=== PATIENT | female | born 1940 | race Caucasian/White ===

== ENCOUNTER 2024-12-26 21:46 | Inpatient (IN) | payer MEDICARE ==
[~2024-12-26] VITALS: Ht 162.6 cm; Wt 81.6 kg
[2024-12-26 22:37] LABS: ALBUMIN 3.4 g/dL (3.5-5.0); ALBUMIN/GLOBULIN RATIO 1.3 (0.8-2.0); ANION GAP 15.2 mmol/L (8-16); BILIRUBIN,TOTAL 0.4 mg/dL (0.2-1.2); CALCIUM 8.4 mg/dL (8.4-10.2); CREATININE, SERUM 1.28 mg/dL (0.57-1.11); POTASSIUM 4.2 mmol/L (3.5-5.1)
[2024-12-26 22:38] LABS: BASOPHILS # (AUTO) 0.1 (0.0-0.1); BASOPHILS % 0.7 % (0.0-1.0); EOSINOPHILS # (AUTO) 0.1 (0.0-0.4); EOSINOPHILS % 1.6 % (0.0-6.0); HEMATOCRIT 35.7 % (34.2-44.1); LYMPHOCYTES # (AUTO) 2.1 (1.0-3.2); LYMPHOCYTES % 25.4 % (18.0-39.1); MEAN CORPUSCULAR HEMOGLOBIN 31.8 pg (28-32); MEAN CORPUSCULAR HGB CONC 30.8 g/dL (31-35); MEAN CORPUSCULAR VOLUME 103.2 fL (81-99); MONOCYTES # (AUTO) 0.7 (0.2-0.8); MONOCYTES % 8.9 % (4.4-11.3); NEUTROPHILS # (AUTO) 5.1 (2.1-6.9); PLATELET COUNT 214 x10e3/uL (140-360); RED BLOOD COUNT 3.46 x10e6/uL (3.6-5.1); RED CELL DISTRIBUTION WIDTH 13.8 % (11.7-14.4); WHITE BLOOD COUNT 8.06 x10e3/uL (4.8-10.8)
[2024-12-26 22:43] LABS: TROPONIN I 0.006 ng/mL (0-0.300)
[2024-12-26] MEDS: DIGOXIN INJ 0.25 MG/ML 2 ML AMP IV STA (22:49)
[2024-12-27] VITALS (9 sets, daily range): BP systolic 128–138; BP diastolic 56–80; PULSE 72–89; RESP 18–23; TEMP 97.6–98.1; O2SAT 97–100
[2024-12-27] MEDS ORDERED: Morphine 2mg Syringe 2 MG/ML SYR IV PRN
[2024-12-27] MEDS ORDERED: SODIUM CHLORIDE FLUSH 10 ML SYR INJ PRN
[2024-12-27] MEDS: FUROSEMIDE INJ 10 MG/ML 4 ML VIAL IV SCH (01:53)
[2024-12-27 06:01] LABS: BASOPHILS # (AUTO) 0.1 (0.0-0.1); BASOPHILS % 0.8 % (0.0-1.0); EOSINOPHILS # (AUTO) 0.1 (0.0-0.4); EOSINOPHILS % 1.4 % (0.0-6.0); HEMATOCRIT 35.3 % (34.2-44.1); LYMPHOCYTES # (AUTO) 2.7 (1.0-3.2); LYMPHOCYTES % 29.3 % (18.0-39.1); MEAN CORPUSCULAR HEMOGLOBIN 32.1 pg (28-32); MEAN CORPUSCULAR HGB CONC 31.2 g/dL (31-35); MEAN CORPUSCULAR VOLUME 102.9 fL (81-99); MONOCYTES # (AUTO) 0.7 (0.2-0.8); MONOCYTES % 7.2 % (4.4-11.3); NEUTROPHILS # (AUTO) 5.6 (2.1-6.9); NEUTROPHILS % 60.9 % (38.7-80.0); PLATELET COUNT 221 x10e3/uL (140-360); RED BLOOD COUNT 3.43 x10e6/uL (3.6-5.1); RED CELL DISTRIBUTION WIDTH 13.9 % (11.7-14.4); WHITE BLOOD COUNT 9.26 x10e3/uL (4.8-10.8)
[2024-12-27 06:17] LABS: ALBUMIN 3.3 g/dL (3.5-5.0); ALBUMIN/GLOBULIN RATIO 1.3 (0.8-2.0); BILIRUBIN,TOTAL 0.5 mg/dL (0.2-1.2); CALCIUM 8.7 mg/dL (8.4-10.2); CREATININE, SERUM 1.15 mg/dL (0.57-1.11); TOTAL PROTEIN 5.9 g/dL (6.5-8.1)
[2024-12-27 06:50] LABS: TROPONIN I 0.027 ng/mL (0-0.300)
[2024-12-27] MEDS ORDERED: ENTRESTO 24 MG1 EACH PO (08:39)
[2024-12-27] MEDS ORDERED: AMIODARONE HCL200 MG PO (08:39)
[2024-12-27] MEDS ORDERED: ALPRAZOLAM0.25 MG PO (08:39)
[2024-12-27] MEDS ORDERED: FUROSEMIDE20 MG PO (08:39)
[2024-12-27] MEDS ORDERED: ATORVASTATIN CA40 MG PO (08:39)
[2024-12-27] MEDS ORDERED: ELIQUIS5 MG PO (08:39)
[2024-12-27] MEDS ORDERED: METOPROLOL SUCC25 MG PO (08:39)
[2024-12-27] MEDS ORDERED: ALBUTEROL/IPRATROPIUM 3 ML NEB NEB PRN (10:15)
[2024-12-27] MEDS: APIXABAN 5 MG TABLET PO SCH (11:02)
[2024-12-27] MEDS: POTASSIUM CHLORIDE 10MEQ EA PO SCH (11:03)
[2024-12-27] MEDS: SPIRONOLACTONE 25 MG TAB PO SCH (12:58)
[2024-12-27] MEDS ORDERED: ASPIRIN81 MG PO (15:08)
[2024-12-27 17:03] LABS: TROPONIN I 0.104 ng/mL (0-0.300)
[2024-12-27] MEDS: SACUBITRIL/VALSARTAN 24MG/26MG 1 EA TAB PO SCH (17:48)
[2024-12-27] MEDS: METOPROLOL SUCCINATE 25 MG TAB XL PO SCH (17:49)
[2024-12-27] MEDS: ONDANSETRON HCL INJ 2MG/ML 2ML 2 MG/ML VIAL IV PRN (17:51)
[2024-12-27] MEDS: ATORVASTATIN 40 MG TAB PO SCH (20:32)
[2024-12-27] MEDS: ALPRAZOLAM 0.25 MG TAB PO PRN (20:39)
[2024-12-28] VITALS (9 sets, daily range): BP systolic 116–150; BP diastolic 51–88; PULSE 60–84; RESP 18–20; TEMP 97.3–98.7; O2SAT 96–100
[2024-12-28 07:07] LABS: BASOPHILS # (AUTO) 0.1 (0.0-0.1); BASOPHILS % 0.9 % (0.0-1.0); EOSINOPHILS # (AUTO) 0.2 (0.0-0.4); HEMATOCRIT 35.4 % (34.2-44.1); LYMPHOCYTES # (AUTO) 1.6 (1.0-3.2); LYMPHOCYTES % 20.6 % (18.0-39.1); MEAN CORPUSCULAR HEMOGLOBIN 31.7 pg (28-32); MEAN CORPUSCULAR HGB CONC 31.1 g/dL (31-35); MONOCYTES # (AUTO) 0.8 (0.2-0.8); MONOCYTES % 10.5 % (4.4-11.3); NEUTROPHILS # (AUTO) 5.1 (2.1-6.9); NEUTROPHILS % 65.5 % (38.7-80.0); PLATELET COUNT 210 x10e3/uL (140-360); RED BLOOD COUNT 3.47 x10e6/uL (3.6-5.1); RED CELL DISTRIBUTION WIDTH 13.8 % (11.7-14.4); WHITE BLOOD COUNT 7.81 x10e3/uL (4.8-10.8)
[2024-12-28 07:30] LABS: ANION GAP 12.1 mmol/L (8-16); CALCIUM 8.2 mg/dL (8.4-10.2); CREATININE, SERUM 1.04 mg/dL (0.57-1.11); POTASSIUM 4.1 mmol/L (3.5-5.1)
[2024-12-28] MEDS: AMIODARONE HCL 200 MG TAB PO SCH (09:10)
[2024-12-29] VITALS (9 sets, daily range): BP systolic 101–136; BP diastolic 47–89; PULSE 43–116; RESP 16–20; TEMP 97.4–98.2; O2SAT 95–100
[2024-12-29] MEDS: BISACODYL 10 MG SUPP PR PRN (14:49)
[2024-12-30] VITALS (10 sets, daily range): BP systolic 108–117; BP diastolic 44–84; PULSE 59–84; RESP 16–18; TEMP 97.2–97.9; O2SAT 96–100
[2024-12-30] MEDS: METOPROLOL SUCCINATE 25 MG TAB XL PO SCH (21:07)
[2024-12-31] VITALS (8 sets, daily range): BP systolic 102–120; BP diastolic 47–62; PULSE 59–74; RESP 18–20; TEMP 97.3–98.1; O2SAT 95–100
== END 2024-12-31 17:17 | disposition home or self-care (01) | DRG 291 ==
LOC: ER 21:54 → ERHOLD 12-27 00:46 → MED/SURG3 12-27 15:10
PROVIDERS: ADMIT Internal Medicine; ATTEND Internal Medicine
DX: I11.0 Hypertensive heart disease with heart failure (principal); I50.23 Acute on chronic systolic (congestive) heart failure; N17.9 Acute kidney failure, unspecified; I48.91 Unspecified atrial fibrillation; E66.9 Obesity, unspecified; Z68.30 Body mass index [BMI] 30.0-30.9, adult; Z88.1 Allergy status to other antibiotic agents; Z88.8 Allergy status to other drugs, medicaments and biological substances
CPT/HCPCS: 36415; 71045; 80048; 80053; 82550; 83690; 83880; 84484; 85025; 93005; 93306; 94799; 99284; J1160; J1938; J2405